=== PATIENT | female | born 1985 | race Caucasian/White ===

== ENCOUNTER 2016-06-13 06:58 | Emergency (ER) | payer OTHER ==
[2016-06-13] MEDS ORDERED: IMODIUM A-D2 M2 PO (07:06)
[2016-06-13] MEDS ORDERED: GUMMI BEAR MUL1 EACH PO (07:07)
[2016-06-13] MEDS ORDERED: ZOFRAN ODT8 M1 PO (10:28)
[2016-06-13] MEDS ORDERED: OXYCODONE5 M1 PO (10:28)
[2016-06-13 10:46] VITALS: BP 106/60
[2016-06-14] MEDS ORDERED: PENICILLIN250 MG PO (08:33)
== END 2016-06-13 10:42 | disposition home or self-care (01) ==
LOC: ED 06:58
DX: K04.7 Periapical abscess without sinus (principal); J32.9 Chronic sinusitis, unspecified; R51 Headache; R11.2 Nausea with vomiting, unspecified
CPT/HCPCS: J0696; J1885; J2405; J3010; J7030

== ENCOUNTER 2016-06-14 08:26 | Emergency (ER) | payer OTHER ==
[~2016-06-14 08:26] MED LIST: GUMMI BEAR MUL1 EACH PO; IMODIUM A-D2 M2 PO; OXYCODONE5 M1 PO; ZOFRAN ODT8 M1 PO
[2016-06-14] MEDS ORDERED: PENICILLIN250 MG PO (08:33)
[2016-06-14 15:38] VITALS: BP 116/72
== END 2016-06-14 15:28 | disposition home or self-care (01) ==
LOC: ED 08:26
DX: K04.7 Periapical abscess without sinus (principal); J32.0 Chronic maxillary sinusitis; R51 Headache; R11.0 Nausea; R60.9 Edema, unspecified
CPT/HCPCS: J1885; J2405; J2543; J3490; J7030; J7120; Q9967

== ENCOUNTER 2020-05-23 10:08 | Emergency (ER) | payer OTHER ==
[~2020-05-23] VITALS: Ht 167.6 cm; Wt 84.5 kg
[~2020-05-23 10:08] MED LIST changes: +PENICILLIN250 MG PO
[2020-05-23] MEDS ORDERED: FLUCONAZOLE150 MG PO (10:18)
[2020-05-23] MEDS ORDERED: GOOD NEIGHBOR200 M1 PO (10:19)
[2020-05-23 11:23] LABS: EOS # 0.1 (0.04-0.40); EOS % 1.2 % (1.0-5.0); HEMATOCRIT 41.4 % (37.0-47.0); HEMOGLOBIN 13.5 g/dL (12.5-16.0); LYMPH# 1.6 (1.50-4.00); MEAN CELL VOLUME 89 fl (78-100); MEAN CORPUSCULAR HEMOGLOBIN 29 pg (27-31); MEAN CORPUSCULAR HGB CONC 33 g/dL (33-37); MEAN PLATELET VOLUME 10.6 fl (7.4-10.4); MONO # 0.6 (0.20-0.80); PLATELET COUNT 271 K/mm3 (130-400); RED BLOOD COUNT 4.66 M/mm3 (4.10-5.30); WHITE BLOOD COUNT 8.3 K/mm3 (4.8-10.8)
[2020-05-23 11:32] LABS: ALBUMIN 4.4 g/dL (3.5-5.0)
[2020-05-23 11:33] LABS: SODIUM 140 mmol/L (136-145)
[2020-05-23 11:34] LABS: CALCIUM 9.1 mg/dL (8.3-10.5)
[2020-05-23 11:35] LABS: GLUCOSE 99 mg/dL (65-105); TOTAL PROTEIN 7.2 g/dL (6.4-8.3)
[2020-05-23 11:36] LABS: CARBON DIOXIDE 24 mmol/L (22-29)
[2020-05-23 11:37] LABS: TOTAL BILIRUBIN 0.3 mg/dL (0.2-1.2)
[2020-05-23 11:40] LABS: AST-SGOT 15 U/L (5-34)
[2020-05-23 11:41] LABS: ALT/SGPT 18 U/L (0-55)
[2020-05-23 11:51] LABS: D-DIMER 0.05 mg/L FEU (0.15-0.50)
[2020-05-23 12:23] LABS: TROPONIN-I < 0.03 ng/mL (<0.030)
[2020-05-23 12:50] VITALS: BP 105/67
== END 2020-05-23 12:51 | disposition home or self-care (01) ==
LOC: ED 10:08
PROVIDERS: Physician Assistant
DX: R07.89 Other chest pain (principal); Z32.02 Encounter for pregnancy test, result negative; Z23 Encounter for immunization; Z88.6 Allergy status to analgesic agent; Z79.899 Other long term (current) drug therapy
CPT/HCPCS: J1885

== ENCOUNTER 2021-01-26 10:26 | Emergency (ER) | payer OTHER ==
[~2021-01-26] VITALS: Ht 167.6 cm; Wt 88.6 kg
[~2021-01-26 10:26] MED LIST changes: +FLUCONAZOLE150 MG PO; +GOOD NEIGHBOR200 M1 PO
[2021-01-26] MEDS ORDERED: MAXALT10 M2 PO (10:48)
[2021-01-26] MEDS ORDERED: FLONASE ALLERG9.9 ML NS (10:48)
[2021-01-26 11:21] LABS: BASO # 0.01 (0.02-0.10); EOS # 0.15 (0.04-0.40); EOS % 1.8 % (1.0-5.0); HEMATOCRIT 37.7 % (37.0-47.0); HEMOGLOBIN 12.5 g/dL (12.5-16.0); LYMPH# 2.07 (1.50-4.00); MEAN CELL VOLUME 89 fl (78-100); MEAN CORPUSCULAR HEMOGLOBIN 30 pg (27-31); MEAN CORPUSCULAR HGB CONC 33 g/dL (33-37); MEAN PLATELET VOLUME 9.7 fl (7.4-10.4); MONO # 0.53 (0.20-0.80); NEU # 5.62 (1.40-6.50); PLATELET COUNT 309 K/mm3 (130-400); RED BLOOD COUNT 4.22 M/mm3 (4.10-5.30); RED CELL DISTRIBUTION WIDTH 12.7 % (11.5-14.5); WHITE BLOOD COUNT 8.4 K/mm3 (4.8-10.8)
[2021-01-26 11:26] LABS: ALBUMIN 4.2 g/dL (3.5-5.0)
[2021-01-26 11:28] LABS: CALCIUM 9.4 mg/dL (8.3-10.5)
[2021-01-26 11:29] LABS: TOTAL PROTEIN 7.4 g/dL (6.4-8.3)
[2021-01-26 11:31] LABS: TOTAL BILIRUBIN 0.3 mg/dL (0.2-1.2)
[2021-01-26 12:37] LABS: URINE APPEARANCE CLEAR; URINE BILIRUBIN NEGATIVE (NEGATIVE); URINE BLOOD NEGATIVE (NEGATIVE); URINE COLOR YELLOW; URINE GLUCOSE NEGATIVE (NEGATIVE); URINE KETONE NEGATIVE (NEGATIVE); URINE LEUKOCYTE ESTERASE NEGATIVE (NEGATIVE); URINE NITRATE NEGATIVE (NEGATIVE); URINE PROTEIN(semi-quant) NEGATIVE (NEGATIVE); URINE UROBILINOGEN NORMAL (NORMAL)
[2021-01-26] MEDS ORDERED: ZOFRAN ODT4 MG PO (13:27)
[2021-01-26 13:51] VITALS: BP 145/95
== END 2021-01-26 14:00 | disposition home or self-care (01) ==
LOC: ED 10:26
PROVIDERS: Nurse Practitioner
DX: K80.20 Calculus of gallbladder without cholecystitis without obstruction (principal); Z32.02 Encounter for pregnancy test, result negative
CPT/HCPCS: J2405; J7030; Q9967

== ENCOUNTER 2021-02-12 20:02 | Emergency (ER) | payer OTHER ==
[~2021-02-12 20:02] MED LIST changes: +FLONASE ALLERG9.9 ML NS; +MAXALT10 M2 PO; +ZOFRAN ODT4 MG PO
[2021-02-12 20:58] LABS: BASO # 0.03 (0.02-0.10); EOS # 0.22 (0.04-0.40); HEMATOCRIT 38.3 % (37.0-47.0); HEMOGLOBIN 12.7 g/dL (12.5-16.0); LYMPH# 2.91 (1.50-4.00); MEAN CELL VOLUME 90 fl (78-100); MEAN CORPUSCULAR HEMOGLOBIN 30 pg (27-31); MEAN CORPUSCULAR HGB CONC 33 g/dL (33-37); MEAN PLATELET VOLUME 9.6 fl (7.4-10.4); MONO # 0.72 (0.20-0.80); NEU # 6.85 (1.40-6.50); PLATELET COUNT 292 K/mm3 (130-400); RED BLOOD COUNT 4.26 M/mm3 (4.10-5.30); WHITE BLOOD COUNT 10.8 K/mm3 (4.8-10.8)
[2021-02-12 21:07] LABS: ALBUMIN 4.4 g/dL (3.5-5.0)
[2021-02-12 21:08] LABS: POTASSIUM 3.6 mmol/L (3.5-5.1)
[2021-02-12 21:09] LABS: CALCIUM 9.6 mg/dL (8.3-10.5)
[2021-02-12 21:10] LABS: TOTAL PROTEIN 7.7 g/dL (6.4-8.3)
[2021-02-12 21:12] LABS: TOTAL BILIRUBIN 0.3 mg/dL (0.2-1.2)
[2021-02-12 21:17] LABS: URINE APPEARANCE HAZY; URINE BILIRUBIN NEGATIVE (NEGATIVE); URINE BLOOD 250 ery/uL (NEGATIVE); URINE COLOR YELLOW; URINE GLUCOSE NEGATIVE (NEGATIVE); URINE KETONE NEGATIVE (NEGATIVE); URINE LEUKOCYTE ESTERASE NEGATIVE (NEGATIVE); URINE NITRATE NEGATIVE (NEGATIVE); URINE PROTEIN(semi-quant) TRACE mg/dL (NEGATIVE); URINE UROBILINOGEN NORMAL (NORMAL)
[2021-02-12 22:08] VITALS: BP 138/95
== END 2021-02-12 22:08 | disposition home or self-care (01) ==
LOC: ED 20:02
PROVIDERS: Nurse Practitioner
DX: K80.20 Calculus of gallbladder without cholecystitis without obstruction (principal)
CPT/HCPCS: J2550

== ENCOUNTER 2021-02-14 01:18 | Emergency (ER) | payer OTHER ==
[~2021-02-14] VITALS: Ht 167.6 cm; Wt 94.7 kg
[2021-02-14] MEDS ORDERED: ROXICODONE 55 MG/TAB PO (01:29)
[2021-02-14 02:14] LABS: BASO # 0.01 K/mm3 (0.02-0.10); EOS # 0.17 K/mm3 (0.04-0.40); EOS % 1.5 % (1.0-5.0); HEMATOCRIT 38.3 % (37.0-47.0); HEMOGLOBIN 12.8 g/dL (12.5-16.0); LYMPH# 3.69 K/mm3 (1.50-4.00); MEAN CELL VOLUME 89 fl (78-100); MEAN CORPUSCULAR HEMOGLOBIN 30 pg (27-31); MEAN CORPUSCULAR HGB CONC 33 g/dL (33-37); MEAN PLATELET VOLUME 9.8 fl (7.4-10.4); MONO # 0.85 K/mm3 (0.20-0.80); NEU # 6.22 K/mm3 (1.40-6.50); PLATELET COUNT 309 K/mm3 (130-400); RED BLOOD COUNT 4.33 M/mm3 (4.10-5.30); RED CELL DISTRIBUTION WIDTH 12.8 % (11.5-14.5)
[2021-02-14 02:36] LABS: POTASSIUM 3.6 mmol/L (3.5-5.1)
[2021-02-14 02:37] LABS: CALCIUM 9.6 mg/dL (8.3-10.5); TOTAL BILIRUBIN 0.2 mg/dL (0.2-1.2); TOTAL PROTEIN 7.1 g/dL (6.4-8.3)
[2021-02-14] MEDS ORDERED: PHENERGAN 25 TA25 MG PO (04:15)
[2021-02-14] MEDS ORDERED: PERCOCET 325 MG1 TA2 PO (04:15)
[2021-02-14 04:35] VITALS: BP 138/86
== END 2021-02-14 04:38 | disposition home or self-care (01) ==
LOC: ED 01:18
PROVIDERS: Nurse Practitioner Family
DX: K80.20 Calculus of gallbladder without cholecystitis without obstruction (principal); E86.0 Dehydration; G43.909 Migraine, unspecified, not intractable, without status migrainosus; Z79.891 Long term (current) use of opiate analgesic
CPT/HCPCS: J1885; J2405; J2550; J7030